=== PATIENT | male | born 1955 | race Caucasian/White ===

== ENCOUNTER 2022-03-20 02:25 | Emergency (ER) | payer MEDICARE, OTHER ==
[~2022-03-20] VITALS: Ht 172.7 cm; Wt 81.6 kg
[2022-03-20] MEDS ORDERED: IV NORMAL SALINE 1000 ML BAG IV ONE (02:30)
--- NOTE | 2022-03-20 02:35 | NUR ---
pt bib ra for c/o lethargic pt was found in his van.
--- NOTE | 2022-03-20 02:50 | NUR ---
Dr. Saenz attempted lumbar puncture but was unsuccessful.
[2022-03-20 02:56] LABS: HEMATOCRIT 46.9 % (36.7-47.1); MEAN CORPUSCULAR HEMOGLOBIN 31.1 uug (23.8-33.4); MEAN CORPUSCULAR VOLUME 87.9 fL (73.0-96.2); PLATELET COUNT (AUTO) 167 K/uL (152-348)
[2022-03-20] MEDS ORDERED: CEFTRIAXONE 1 G in IV DEXTROSE 5% 50 ML IV ONE (03:00)
[2022-03-20 03:07] LABS: THYROID STIMULATING HORMONE 1.699 mIU/mL (0.358-3.740)
[2022-03-20 03:11] LABS: ETHANOL < 3 MG/DL (0-0)
[2022-03-20 03:12] LABS: ALANINE AMINOTRANSFERASE 69 U/L (16-63); ALKALINE PHOSPHATASE 71 U/L (50-136); ASPARTATE AMINOTRANSFERASE 53 U/L (15-37); BILIRUBIN,DIRECT 0.5 mg/dL (0.0-0.2); BILIRUBIN,TOTAL 1.7 mg/dL (0.2-1.0); CARBON DIOXIDE 30 mmol/L (21-32); CHLORIDE 92 mmol/L (98-107); CREATININE 1.4 mg/dL (0.6-1.3); GLUCOSE 190 mg/dL (74-106); TOTAL PROTEIN, SERUM 7.2 g/dL (6.4-8.2); UREA NITROGEN, BLOOD 32 mg/dL (7-18)
[2022-03-20 03:13] LABS: ACETAMINOPHEN < 2.0 ug/mL (10-30); POTASSIUM 2.6 mmol/L (3.5-5.1)
[2022-03-20] MEDS ORDERED: CEFTRIAXONE /D5W 50ML IVPB **ER PYXIS IV ONE (03:26)
[2022-03-20 03:28] LABS: *BILIRUBIN,URIN NEGATIVE (NEGATIVE); *BLOOD, URINE 2+ (NEGATIVE); *CLARITY,URINE CLEAR (CLEAR); *COLOR,URINE YELLOW (YELLOW); *KETONES,URINE 1+ (NEGATIVE); *UROBILINOGEN,URINE 0.2 E.U./dl (NORMAL); LEUKOCYTE ESTERASE ,URINE NEGATIVE (NEGATIVE); NITRITE, URINE NEGATIVE (NEGATIVE); UGLUCOSE 3+ (NEGATIVE)
[2022-03-20] MEDS ORDERED: LOSA1TAB39 PO (03:31)
[2022-03-20] MEDS ORDERED: PIOG15TA8 PO (03:31)
[2022-03-20] MEDS ORDERED: ASPI81TA31 PO (03:31)
[2022-03-20] MEDS ORDERED: DAPA10TA PO (03:31)
[2022-03-20] MEDS ORDERED: IBUP-1957 PO (03:31)
[2022-03-20] MEDS ORDERED: ATOR20TA PO (03:31)
[2022-03-20] MEDS ORDERED: NATE120T6 PO (03:31)
[2022-03-20] MEDS ORDERED: CLOP75TA33 PO (03:31)
[2022-03-20] MEDS ORDERED: VIT1CAPS44 PO (03:31)
[2022-03-20] MEDS ORDERED: DOCU-286 PO (03:31)
[2022-03-20] MEDS ORDERED: LISI2.5T14 PO (03:31)
[2022-03-20] MEDS ORDERED: GABA-532 PO (03:31)
[2022-03-20] MEDS ORDERED: LINA5TAB PO (03:31)
[2022-03-20] MEDS ORDERED: GLIM2TAB31 PO (03:31)
[2022-03-20] MEDS ORDERED: TRAM50TA2 PO (03:31)
[2022-03-20] MEDS ORDERED: AMLO10TA59 PO (03:31)
[2022-03-20] MEDS ORDERED: BACL10TA PO (03:31)
[2022-03-20] MEDS ORDERED: FENO145T21 PO (03:31)
[2022-03-20 03:34] LABS: BACTERIA,URINE NONE SEEN /HPF (NONE SEEN); SQUAMOUS EPITHELIAL CELL,UR NONE SEEN /HPF (NONE SEEN); WBC,URINE NONE SEEN /HPF (0-3); YEAST,URINE NONE SEEN /HPF (NONE SEEN)
[2022-03-20] MEDS ORDERED: IV 0.9% SODIUM CHLORID+ 20 KCL 1,000 ML ONE (03:40)
--- NOTE | 2022-03-20 03:40 | NUR ---
Patient taken to CT
[2022-03-20] MEDS ORDERED: IV 0.9% SODIUM CHLORID+ 20 KCL 1,000 ML IV ONE (03:45)
[2022-03-20 03:46] LABS: *AMPHETAMINE, URINE NEGATIVE (NEGATIVE); *CANNABINOID, URINE NEGATIVE (NEGATIVE); *COCCAINE, URINE NEGATIVE (NEGATIVE); *OPIATE, URINE NEGATIVE (NEGATIVE); *PHENCYCLIDINE SCREEN,URINE NEGATIVE (NEGATIVE)
[2022-03-20] MEDS ORDERED: LIDOCAINE 2% (GLYDO= UROJET) 10 ML JELLY MM ONE ×2 (05:11→05:30)
[2022-03-20] MEDS ORDERED: LABETALOL HCL 100 MG/20 ML VIAL ONE (05:19)
[2022-03-20] MEDS ORDERED: HYDROMORPHONE 1 MG/1 ML DISP.SYRIN ONE (05:19)
[2022-03-20] MEDS ORDERED: ONDANSETRON 4 MG/2 ML VIAL ONE (05:19)
[2022-03-20 05:25] VITALS: BP 167/78
[2022-03-20] MEDS ORDERED: HYDROMORPHONE 1 MG/1 ML DISP.SYRIN IV ONE (05:30)
[2022-03-20] MEDS ORDERED: NALOXONE HCL 0.4 MG/ML AMPUL ONE (05:30)
[2022-03-20] MEDS ORDERED: LABETALOL HCL 100 MG/20 ML VIAL IV ONE (05:30)
[2022-03-20] MEDS ORDERED: ONDANSETRON 4 MG/2 ML VIAL IV ONE (05:30)
--- NOTE | 2022-03-20 05:30 | NUR ---
at approximatly 0530 pt became obtundated and non responsive to verbal stimuli. Dr. Saenz was called to the bedside, Respiratory therapy was called in prep of possible immediate intubation to protect the pt's airway. at 0530 and at 0533 pt was given narcan 0.4mg and 2mg of narcan. At 0535 pt is more awake and was verbal speaking appropriatley. Dr. Saenz remains at bedside 0540 pt is on and off agiated and restless, a second iv was placed to the pt on his right wrist. close observation of his vital signs is noted per md orders.
[2022-03-20] MEDS ORDERED: NALOXONE 2 MG/2 ML SYRINGE ONE (05:32)
[2022-03-20 06:14] LABS: CREATININE 1.1 mg/dL (0.6-1.3); POTASSIUM 3.6 mmol/L (3.5-5.1)
[2022-03-20] MEDS ORDERED: NALOXONE HCL 0.4 MG/ML AMPUL IV ONE (06:15)
--- NOTE | 2022-03-20 06:30 | NUR ---
[facility] here acls report given to Solis PERERA. I have been calling [phone] labeling strategist at [facility] there is no answer. I have been calling multiple times.
--- NOTE | 2022-03-20 06:47 | NUR ---
report was given to Kamilah at [facility] and I also spoke with Mackenzie cabreraboiler house inspector at [facility]. [facility] is here to take the pt to this hospital.
== END 2022-03-20 06:54 | disposition short-term general hospital (02) ==
LOC: ER 02:43
DX: I60.7 Nontraumatic subarachnoid hemorrhage from unspecified intracranial artery (principal); E86.0 Dehydration; R94.31 Abnormal electrocardiogram [ECG] [EKG]; R51.9 Headache, unspecified; E87.6 Hypokalemia; R41.0 Disorientation, unspecified; Z79.82 Long term (current) use of aspirin; Z79.899 Other long term (current) drug therapy; E11.9 Type 2 diabetes mellitus without complications; I69.354 Hemiplegia and hemiparesis following cerebral infarction affecting left non-dominant side; R40.0 Somnolence; T40.2X5A Adverse effect of other opioids, initial encounter; Y92.238 Other place in hospital as the place of occurrence of the external cause
CPT/HCPCS: 80076; 80048 ×2; 81001; 82140; 84443; 85025; 85730; 87400; 87426; 87086; 84484 ×2; 36415; 93005; 71045; 62270; 70450; 99291; 96365; 96367; 96375; 80299; 80320; 80307; J0696; J3490; J2310 ×2; J2405; J1170; J7040 ×2; A4663; C1758; G0480